=== PATIENT | male | born 1965 | race African-American/Black ===

== ENCOUNTER 2019-04-29 19:52 | Emergency (ER) | payer SELFPAY ==
[2019-04-29 19:59] VITALS: BP 144/89; PULSE 95; TEMP 99.4; BMI 25.0
--- NOTE | 2019-04-29 20:00 | PDOC ---
Rapid Medical Evaluation Chief Complaint: Pain, Acute Time Seen by Provider: 04/29/19 19:58 Medical Evaluation: 04/29/19 19:58 I have performed a brief in-person evaluation of this patient. The patient presents with a chief complaint of: 3 days h/o lower tooth pain. report taking aleve with minimal improvement. Denies any other symptoms Pertinent physical exam findings: multiple decayed right lower back molars I have ordered the following: nothing The patient will proceed to the ED for further evaluation Discharge Disposition - Diagnosis Pain, dental - Discharge Dispostion Condition at time of disposition: Stable - Referrals - Patient Instructions - Post Discharge Activity
--- NOTE | 2019-04-29 20:51 | PDOC ---
History of Present Illness - General Chief Complaint: Toothache Stated Complaint: TOOTHACHE Time Seen by Provider: 04/29/19 19:58 - History of Present Illness Initial Comments: 04/29/19 20:48 53-year-old male without comorbidities presents for evaluation of toothache x3 days no systemic symptoms. Past History - Past Medical History Allergies/Adverse Reactions: Allergies Allergy/AdvReac Type Severity Reaction Status Date / Time No Known Allergies Allergy Verified 04/29/19 19:59 Home Medications: Ambulatory Orders Amoxicillin - [Amoxicillin 500mg Capsule -] 500 mg PO TID #90 capsule 04/29/19 COPD: No - Immunization History Immunization Up to Date: Yes - Psycho Social/Smoking Cessation Hx Smoking History: Current every day smoker Have you smoked in the past 12 months: Yes Number of Cigarettes Smoked Daily: 10 Information on smoking cessation initiated: No Hx Alcohol Use: No Drug/Substance Use Hx: No Review of Systems - Review of Systems Constitutional: No: Fever HEENTM: Yes: Dental Problems *Physical Exam - Vital Signs Last Vital Signs Temp Pulse Resp BP Pulse Ox 99.4 F 95 H 17 144/89 98 04/29/19 19:56 04/29/19 19:56 04/29/19 19:56 04/29/19 19:56 04/29/19 19:56 - Physical Exam 04/29/19 20:49 Widespread dental decay large cavity bottom right rear molar no visible abscess Medical Decision Making - Medical Decision Making 04/29/19 20:49 Amoxicillin and Motrin follow-up with dental 04/29/19 20:50 90 tablets of amoxicillin were given to the patient because his dental coverage does not start for the next 3 weeks Discharge - Discharge Information Problems reviewed: Yes Clinical Impression/Diagnosis: Pain, dental Condition: Stable Disposition: HOME - Admission No - Follow up/Referral Referrals: Urgent Care Dental [Outside] - Patient Discharge Instructions Patient Printed Discharge Instructions: DI for Dental Pain Additional Instructions: Follow-up with urgent care dental in 1 to 2 days for further evaluation and treatment option return to the emergency room should symptoms worsen. - Post Discharge Activity
== END 2019-04-29 20:57 | disposition home or self-care (01) ==
LOC: JERFT 19:52
DX: K08.89 Other specified disorders of teeth and supporting structures (principal)
CPT/HCPCS: 99281-25

== ENCOUNTER 2020-07-06 07:55 | Emergency (ER) | payer OTHER ==
[2020-07-06 08:11] VITALS: BP 149/83; PULSE 99; TEMP 98.1; BMI 25.0
== END 2020-07-06 09:16 | disposition home or self-care (01) ==
LOC: JER 07:55
DX: R05 Cough (principal)
CPT/HCPCS: 99283-25; C9803; U0003